=== PATIENT | male | born 1975 | race Caucasian/White ===

== ENCOUNTER 2019-06-02 09:49 | Outpatient (CLI) | payer BC ==
--- NOTE | 2019-06-02 11:45 | RAD ---
LEFT SHOULDER 3 VIEWS: HISTORY: Shoulder pain. FINDINGS: No evidence of fracture or dislocation. AC joint normally aligned. IMPRESSION: No acute abnormality. POS: [facility]
== END 2019-06-02 09:50 | disposition home or self-care (01) ==
LOC: RAD 09:49
PROVIDERS: ATTEND Specialist
DX: M25.512 Pain in left shoulder (principal)

== ENCOUNTER 2019-09-19 14:14 | Outpatient (CLI) | payer BC ==
--- NOTE | 2019-09-19 14:46 | RAD ---
Lumbar spine 3 views HISTORY: Low back pain. Prior surgery. FINDINGS: Bilateral pedicle screws and vertical rods at the L4-5-S1 levels. No perihardware lucency i s apparent. Metallic markers associated with interbody fusion material within the confines of the disc spaces at the postoperative levels. Other pedicles are intact. Vertebral body heights are maintained. There is minimal retrolisthesis at the L4-5 level. There is 1.1 cm spondylolisthesis at the lumbosacral junction. Osteophytosis throughout the facets. Calcification over the arterial structures. IMPRESSION: Postoperative and degenerative changes of the lumbar spine. No evidence of compression fr acture. Atherosclerosis.
== END 2019-09-19 14:15 | disposition home or self-care (01) ==
LOC: RAD 14:14
PROVIDERS: ATTEND Specialist
DX: M54.5 Low back pain (principal); M47.816 Spondylosis without myelopathy or radiculopathy, lumbar region; I70.90 Unspecified atherosclerosis; Z98.890 Other specified postprocedural states
CPT/HCPCS: 72100

== ENCOUNTER 2019-10-11 06:47 | Day surgery (SDC) | payer BC ==
[2019-10-11 08:39] VITALS: BP 128/74; TEMP 98.4; BMI 23.7
--- NOTE | 2019-10-11 08:42 | RAD ---
4 views lumbar spine: 10/11/2019 HISTORY: Spinal stenosis, pain FINDINGS: Bilateral L4, L5, and S1 pedicle screws are present with vertically oriented interlocking r ods. There is an intervertebral disc device at the L4-5 and L5-S1 level. L5-S1 anterolisthesis noted measuring approximately 10-11 mm on neutral imaging. There is disc space narrowing at the L3-4, L4-5, and L5-S1 levels. The extension imaging demonstrates anterolisthesis of 1.1 cm at L5-S1 and the flexion imaging demonstrates anterolisthesis of 1.2 cm at L5-S1. No acute fracture is noted. IMPRESSION: Postoperative and degenerative change within the lumbar spine as detailed above.
--- NOTE | 2019-10-11 08:44 | RAD ---
Lumbar spine myelogram: 10/11/2019 HISTORY: Pain and radiculopathy, prior lumbar spine surgery FINDINGS: Informed consent obtained prior to the procedure. Skin overlying the lower lumbar spine was prepped and draped in normal sterile fashion. Skin at the L 3 level was anesthetized with 1% buffered lidocaine. With intermittent fluoroscopic guidance, a 22-gauge spinal needle is advanced into the thecal sac at the L3 level and removal of the stylet yiel ds clear cerebrospinal fluid. Approximately 10 cc of Isovue 200 was injected, outlining nerve roots of the cauda equina and opacify ing the thecal sac. Needle was removed. Patient tolerated the procedure well. Patient was then transferred to the CT scanner for CT myelogram of the lumbar spine. Exposure data: 0.9 minutes of fluoroscopic time, 536 mcg/sq m. IMPRESSION: Successful lumbar spine myelogram, CT myelogram of the lumbar spine to follow.
[2019-10-11] MEDS ORDERED: FLU VACC QS2019-20(6MOS UP)/PF 60 MCG/0.5 ML SYRINGE IM ONE (09:00)
--- NOTE | 2019-10-11 09:18 | CT ---
CT myelogram of the lumbar spine: 10/11/2019 HISTORY: Back pain and radiculopathy TECHNIQUE: Axial CT imaging at 2.5 mm intervals obtained without IV contrast. Coronal and sagittal re formatted imaging obtained. FINDINGS: There is good opacification of the thecal sac following injection of iodinated contrast med ia. Bilateral pedicle screws are present at the L4 level, L5 level, and S1 level with vertically oriented interlocking rods. No evidence of hardware failure. T12-L1: No central canal or neural foraminal stenosis. L1-2: Minimal disc bulge. Mild bilateral ligamentum flavum hypertrophy. No significant central canal or neural foraminal stenosis. L2-3: There is mild disc space narrowing. There is mild disc bulge. There is mild bilateral facet hyp ertrophy. No significant central canal or neural foraminal stenosis. L3-4: There is disc space narrowing with mild disc bulge. There is bilateral facet hypertrophy and hy pertrophy of the ligamentum flavum. Mild bilateral neural foraminal stenosis is suspected, left greater than right. No central canal stenosis. L4-5: Intervertebral disc device present. Bilateral facet hypertrophy present with mild bilateral ken ral foraminal stenosis. No significant central canal stenosis. L5-S1: There is bilateral facet hypertrophy. Bilateral L5 pars defects are present with anterolisthes is of L5 on S1 measuring 1.1 cm. There is disc space narrowing with degenerative endplate change and a vacuum disc. There is moderate bilateral neural foraminal stenosis, right greater than left. No significant central canal stenosis. There is scattered atherosclerotic calcifications of the abdominal aorta. Image retroperitoneal structures demonstrate no acute findings. IMPRESSION: Postoperative and degenerative change within the lumbar spine as detailed above.
[2019-10-11] MEDS ORDERED: Iopamidol-M 200 41% 20 ML VIAL ONE (15:34)
== END 2019-10-11 09:45 | disposition home or self-care (01) ==
LOC: RAD 06:47
PROVIDERS: ATTEND Nurse Practitioner Family
PROC: B02B1ZZ Computerized Tomography (CT Scan) of Spinal Cord using Low Osmolar Contrast (ICD-10-PCS; principal; 2019-10-11)
DX: M48.062 Spinal stenosis, lumbar region with neurogenic claudication (principal); M54.16 Radiculopathy, lumbar region; I70.0 Atherosclerosis of aorta; F17.210 Nicotine dependence, cigarettes, uncomplicated; Z79.891 Long term (current) use of opiate analgesic; Z79.899 Other long term (current) drug therapy; Z98.1 Arthrodesis status
CPT/HCPCS: 62304; 72120; 72132; Q9966

== ENCOUNTER 2020-01-13 19:23 | Emergency (ER) | payer BC ==
[2020-01-13] MEDS ORDERED: Sulfameth/Trimethoprim DS 800-160mg TAB ONE (20:27)
[2020-01-13] MEDS ORDERED: Ciprofloxacin 500 MG TAB ONE (20:27)
== END 2020-01-13 20:35 | disposition home or self-care (01) ==
LOC: ERS 19:23
DX: N49.2 Inflammatory disorders of scrotum (principal); Z87.891 Personal history of nicotine dependence; Z79.899 Other long term (current) drug therapy
CPT/HCPCS: 99283

== ENCOUNTER 2022-04-14 10:21 | Outpatient (CLI) | payer BC | END 2022-04-14 10:22 | disposition home or self-care (01) | LOC: BICMRI 10:21 | PROVIDERS: ATTEND Specialist | DX: S62.034A Nondisplaced fracture of proximal third of navicular [scaphoid] bone of right wrist, initial encounter for closed fracture (principal); S63.591A Other specified sprain of right wrist, initial encounter | CPT/HCPCS: 74018 ==